=== PATIENT | male | born 1950 | race Caucasian/White ===

== ENCOUNTER 2019-01-18 00:16 | Emergency (ER) | payer MEDICARE, BC ==
[~2019-01-18] VITALS: Ht 172.7 cm; Wt 88.0 kg
[2019-01-18 01:00] LABS: BASOPHILS # (AUTO) 0.1 X10'3 (0-0.2); BASOPHILS % (AUTO) 1.1 % (0-1); EOSINOPHILS # (AUTO) 0.3 X10'3 (0-0.9); EOSINOPHILS % (AUTO) 2.8 % (0-6); HEMATOCRIT 50.9 % (42.0-52.0); HEMOGLOBIN 17.3 g/dl (14.0-17.9); LYMPHOCYTES # (AUTO) 1.6 X10'3 (1.1-4.8); LYMPHOCYTES % (AUTO) 14.3 % (21-51); MEAN CORPUSCULAR HEMOGLOBIN 28.8 PG (27.0-31.0); MEAN CORPUSCULAR VOLUME 84.8 FL (78-98); MEAN PLATELET VOLUME 7.8 FL (7.4-10.4); MONOCYTES # (AUTO) 0.9 X10'3 (0-0.9); MONOCYTES % (AUTO) 8.2 % (2-12); NEUTROPHILS # (AUTO) 8.2 X10'3 (1.8-7.7); NEUTROPHILS % (AUTO) 73.6 % (42-75); PLATELET COUNT 320 X10'3 (140-440); RED BLOOD COUNT 6.01 X10'6 (4.70-6.10); RED CELL DISTRIBUTION WIDTH 13.7 % (11.5-14.5); WHITE BLOOD COUNT 11.1 X10'3 (4.5-11.0)
[2019-01-18 01:10] LABS: ALANINE AMINOTRANSFERASE 29 U/L (12-78); ALBUMIN 3.6 G/DL (3.4-5.0); ALBUMIN/GLOBULIN RATIO 0.8 (1.1-1.5); ALKALINE PHOSPHATASE 52 IU/L (46-116); ANION GAP 10 (8-16); ASPARTATE AMINO TRANSFERASE 20 U/L (10-37); BILIRUBIN,TOTAL 0.5 MG/DL (0.1-1.0); BLOOD UREA NITROGEN 30 MG/DL (7-18); BUN/CREATININE RATIO 14.8 (5.4-32.0); CALCIUM 9.3 MG/DL (8.5-10.1); CHLORIDE 100 MMOL/L (99-107); CREATININE 2.03 MG/DL (0.60-1.10); GLUCOSE 101 MG/DL (70-104); POTASSIUM 4.9 MMOL/L (3.5-5.1); SODIUM 136 MMOL/L (135-145); TOTAL CARBON DIOXIDE 25.8 MMOL/L (24-32); TOTAL PROTEIN 8.1 G/DL (6.4-8.2); eGFR 33 ML/MIN
[2019-01-18] MEDS ORDERED: morphine 4 MG/ML inj SYRINge IV ONE ×2 (01:50→02:50)
[2019-01-18] MEDS ORDERED: normal saline 1000ML IV soln IVB ONE (01:50)
--- NOTE | 2019-01-18 01:57 | NUR ---
pt to ct with tech
[2019-01-18 02:04] LABS: CLARITY,URINE CLEAR (Clear); COLOR,URINE YELLOW (Yellow); GLUCOSE, URINE NEGATIVE (Neg); KETONES,URINE NEGATIVE (Neg); LEUKOCYTE ESTERASE ,URINE NEGATIVE (Neg); NITRITES, URINE NEGATIVE (Neg); OCCULT BLOOD,URINE LARGE (Neg); PH,URINE 5.5 (4.8-8.0); PROTEIN,URINE NEGATIVE (Neg); UROBILINOGEN,URINE 0.2 E.U/dL (0.2-1.0)
[2019-01-18 02:05] LABS: UA COLLECTION TYPE URINAL
[2019-01-18] MEDS: tamsulosin 0.4mg capsule PO ONE ×2 (02:10→02:38)
[2019-01-18 02:11] LABS: BACTERIA,URINE NONE SEEN /HPF (Neg); MUCUS STRANDS NONE SEEN /LPF (Neg); SQUAMOUS EPITHELIAL CELL,UR NONE SEEN /LPF (FEW); WBC,URINE 0-4 /HPF (0-4)
--- NOTE | 2019-01-18 02:57 | NUR ---
pt reported he was still having pain. spoke with MD and rec'd order for additional 4mg morphine IV push. pt has been medicated.
[2019-01-18] MEDS ORDERED: ONDA8TAB6 PO (04:20)
[2019-01-18 04:47] VITALS: BP 153/113
== END 2019-01-18 04:48 | disposition home or self-care (01) ==
LOC: ER 00:17
DX: N13.2 Hydronephrosis with renal and ureteral calculous obstruction (principal); K21.9 Gastro-esophageal reflux disease without esophagitis; E03.9 Hypothyroidism, unspecified; M10.9 Gout, unspecified; Z98.890 Other specified postprocedural states; Z88.1 Allergy status to other antibiotic agents; Z79.899 Other long term (current) drug therapy
CPT/HCPCS: 36415; 74176; 80053; 81001; 85025; 85610; 96374; 96376; 99284; J2270; J7030

== ENCOUNTER 2019-02-17 23:03 | Emergency (ER) | payer MEDICARE, BC ==
[~2019-02-17] VITALS: Ht 172.7 cm; Wt 86.4 kg
[~2019-02-17 23:03] MED LIST: ONDA8TAB6 PO
[2019-02-17 23:30] LABS: BASOPHILS # (AUTO) 0.1 X10'3 (0-0.2); BASOPHILS % (AUTO) 1.1 % (0-1); EOSINOPHILS # (AUTO) 0.1 X10'3 (0-0.9); EOSINOPHILS % (AUTO) 0.5 % (0-6); HEMATOCRIT 51.1 % (42.0-52.0); HEMOGLOBIN 17.4 g/dl (14.0-17.9); LYMPHOCYTES # (AUTO) 1.6 X10'3 (1.1-4.8); LYMPHOCYTES % (AUTO) 11.6 % (21-51); MEAN CORPUSCULAR HEMOGLOBIN 29.1 PG (27.0-31.0); MEAN CORPUSCULAR HGB CONC 34.1 g/dL (33.0-36.5); MEAN CORPUSCULAR VOLUME 85.1 FL (78-98); MEAN PLATELET VOLUME 7.6 FL (7.4-10.4); MONOCYTES # (AUTO) 0.6 X10'3 (0-0.9); MONOCYTES % (AUTO) 4.5 % (2-12); NEUTROPHILS # (AUTO) 11.2 X10'3 (1.8-7.7); NEUTROPHILS % (AUTO) 82.3 % (42-75); PLATELET COUNT 324 X10'3 (140-440); RED BLOOD COUNT 6.01 X10'6 (4.70-6.10); RED CELL DISTRIBUTION WIDTH 14.2 % (11.5-14.5); WHITE BLOOD COUNT 13.7 X10'3 (4.5-11.0)
[2019-02-17] MEDS ORDERED: ondansetron/PF 4mg/2ml inj IV ONE (23:30)
[2019-02-17] MEDS ORDERED: ondansetron 4mg rapidly disintigrating tab PO ONE (23:35)
[2019-02-17 23:43] LABS: ALANINE AMINOTRANSFERASE 30 U/L (12-78); ALBUMIN 4.1 G/DL (3.4-5.0); ALBUMIN/GLOBULIN RATIO 0.9 (1.1-1.5); ALKALINE PHOSPHATASE 62 IU/L (46-116); ANION GAP 8 (8-16); ASPARTATE AMINO TRANSFERASE 22 U/L (10-37); BILIRUBIN,TOTAL 0.6 MG/DL (0.1-1.0); BLOOD UREA NITROGEN 20 MG/DL (7-18); BUN/CREATININE RATIO 14.4 (5.4-32.0); CALCIUM 9.5 MG/DL (8.5-10.1); CHLORIDE 102 MMOL/L (99-107); CREATININE 1.39 MG/DL (0.60-1.10); GLUCOSE 119 MG/DL (70-104); LIPASE 141 U/L (73-393); POTASSIUM 4.5 MMOL/L (3.5-5.1); SODIUM 138 MMOL/L (135-145); TOTAL CARBON DIOXIDE 28.4 MMOL/L (24-32); TOTAL PROTEIN 8.8 G/DL (6.4-8.2); eGFR 51 ML/MIN
[2019-02-17 23:44] LABS: CLARITY,URINE CLEAR (Clear); COLOR,URINE YELLOW (Yellow); GLUCOSE, URINE NEGATIVE (Neg); KETONES,URINE NEGATIVE (Neg); LEUKOCYTE ESTERASE ,URINE NEGATIVE (Neg); NITRITES, URINE NEGATIVE (Neg); OCCULT BLOOD,URINE NEGATIVE (Neg); PH,URINE 6.5 (4.8-8.0); PROTEIN,URINE NEGATIVE (Neg); UROBILINOGEN,URINE 0.2 E.U/dL (0.2-1.0)
[2019-02-17 23:49] LABS: UA COLLECTION TYPE URINAL
--- NOTE | 2019-02-18 00:34 | NUR ---
MD BECKER MADE AWARE OF PT VITAL SIGNS. NO NEW ORDERS.
[2019-02-18] MEDS ORDERED: ketorolac trometh inj. 60 MG/2 ML VIAL IM ONE (01:10)
[2019-02-18] MEDS ORDERED: cephalexin 250mg capsule PO ONE (01:10)
[2019-02-18 01:24] VITALS: BP 180/94
[2019-02-18] MEDS ORDERED: ALLO100T PO (11:36)
[2019-02-18] MEDS ORDERED: LEVO100T9 PO (11:36)
[2019-02-18] MEDS ORDERED: OMEP20TA23 PO (11:54)
[2019-02-18] MEDS ORDERED: OMEP40CA13 PO (12:30)
== END 2019-02-18 01:26 | disposition home or self-care (01) ==
LOC: ER 23:03
DX: K81.0 Acute cholecystitis (principal); K21.9 Gastro-esophageal reflux disease without esophagitis; M10.9 Gout, unspecified; E05.90 Thyrotoxicosis, unspecified without thyrotoxic crisis or storm; Z87.442 Personal history of urinary calculi; Z98.890 Other specified postprocedural states; Z88.1 Allergy status to other antibiotic agents; Z79.899 Other long term (current) drug therapy
CPT/HCPCS: 36415; 74176; 80053; 81003; 83690; 85025; 96372; 99284; J1885

== ENCOUNTER 2019-02-18 08:24 | Inpatient (IN) | payer MEDICARE, BC ==
[~2019-02-18] VITALS: Ht 172.7 cm; Wt 86.4 kg
[2019-02-18] VITALS (16 sets, daily range): BP systolic 109–150; BP diastolic 59–85
[2019-02-18 09:35] LABS: BASOPHILS % (AUTO) 0.5 % (0-1); EOSINOPHILS # (AUTO) 0.1 X10'3 (0-0.9); HEMOGLOBIN 16.7 g/dl (14.0-17.9); LYMPHOCYTES # (AUTO) 1.4 X10'3 (1.1-4.8); LYMPHOCYTES % (AUTO) 15.9 % (21-51); MEAN CORPUSCULAR HEMOGLOBIN 29.1 PG (27.0-31.0); MEAN CORPUSCULAR HGB CONC 34.1 g/dL (33.0-36.5); MEAN CORPUSCULAR VOLUME 85.1 FL (78-98); MEAN PLATELET VOLUME 7.5 FL (7.4-10.4); MONOCYTES # (AUTO) 0.8 X10'3 (0-0.9); MONOCYTES % (AUTO) 9.1 % (2-12); NEUTROPHILS # (AUTO) 6.5 X10'3 (1.8-7.7); NEUTROPHILS % (AUTO) 73.5 % (42-75); PLATELET COUNT 289 X10'3 (140-440); RED BLOOD COUNT 5.76 X10'6 (4.70-6.10); RED CELL DISTRIBUTION WIDTH 13.8 % (11.5-14.5); WHITE BLOOD COUNT 8.8 X10'3 (4.5-11.0)
[2019-02-18 09:45] LABS: ALANINE AMINOTRANSFERASE 28 U/L (12-78); ALBUMIN 3.7 G/DL (3.4-5.0); ALBUMIN/GLOBULIN RATIO 0.9 (1.1-1.5); ALKALINE PHOSPHATASE 59 IU/L (46-116); ANION GAP 6 (8-16); ASPARTATE AMINO TRANSFERASE 20 U/L (10-37); BILIRUBIN,TOTAL 0.7 MG/DL (0.1-1.0); BLOOD UREA NITROGEN 18 MG/DL (7-18); BUN/CREATININE RATIO 12.6 (5.4-32.0); CHLORIDE 102 MMOL/L (99-107); CREATININE 1.43 MG/DL (0.60-1.10); GLUCOSE 106 MG/DL (70-104); LIPASE 145 U/L (73-393); POTASSIUM 4.4 MMOL/L (3.5-5.1); SODIUM 139 MMOL/L (135-145); TOTAL CARBON DIOXIDE 30.6 MMOL/L (24-32); eGFR 49 ML/MIN
[2019-02-18 09:51] LABS: CALCIUM 9.8 MG/DL (8.5-10.1)
[2019-02-18] MEDS ORDERED: HYDROcodone/acetaminophen 5mg/325mg tablet PO PRN (11:05)
[2019-02-18] MEDS ORDERED: acetaminophen 325mg tablet PO PRN ×2 (11:05)
[2019-02-18] MEDS ORDERED: magnesium Cl slow-release 64mg tablet PO PRN (11:05)
[2019-02-18] MEDS ORDERED: magnesium hydroxide 30ml (MOM) UD suspension PO PRN (11:05)
[2019-02-18] MEDS ORDERED: mag hydrox/Alum hydrox/simeth 30ml oral suspension PO PRN (11:05)
[2019-02-18] MEDS ORDERED: HYDROcodone/acetaminophen 10/325mg tab PO PRN ×2 (11:05→15:55)
[2019-02-18] MEDS ORDERED: piperacillin/tazo 3.375gm/50ml 50 ML IV ONE (11:05)
[2019-02-18] MEDS ORDERED: potassium CL 10mEq/100ml bag 100 ML IV PRN ×2 (11:05)
[2019-02-18] MEDS ORDERED: potassium Cl 20 mEq SR tablet PO PRN ×2 (11:05)
[2019-02-18] MEDS ORDERED: magnesium 4gm in 100ml NS 100 ML IV PRN (11:05)
[2019-02-18] MEDS ORDERED: ondansetron/PF 4mg/2ml inj IV PRN ×3 (11:05→15:55)
[2019-02-18] MEDS ORDERED: magnesium 2GM in 50ml NS 50 ML IV PRN (11:05)
[2019-02-18] MEDS ORDERED: morphine 2 MG/ML inj. syringe IV PRN ×2 (11:05)
[2019-02-18] MEDS: normal saline 1000ml 1,000 ML IV SCH ×2 (11:30→17:47)
[2019-02-18] MEDS ORDERED: ALLO100T PO (11:36)
[2019-02-18] MEDS ORDERED: LEVO100T9 PO (11:36)
[2019-02-18] MEDS ORDERED: OMEP20TA23 PO (11:54)
--- NOTE | 2019-02-18 12:02 | NUR ---
ATTEMPTED TO CALL REPORT. NO RN ASSIGNED. WILL CALL BACK.
[2019-02-18] MEDS ORDERED: OMEP40CA13 PO (12:30)
--- NOTE | 2019-02-18 12:50 | NUR ---
Patient in room [facility]. I have received report from Jonatan BENEDICT and had the opportunity to ask questions and assume patient care.
[2019-02-18] MEDS ORDERED: BUPIVAcaine/PF 2.5 mg/ml (0.25%) 30ml vial ONE (14:15)
[2019-02-18] MEDS ORDERED: ceFAZolin 1000mg inj ONE (14:15)
[2019-02-18] MEDS ORDERED: sevoflurane 250ml liquid IH ONE (14:39)
[2019-02-18] MEDS ORDERED: ceFOXitin 2 GM ADDVANTGE BAG 50 ML IV ONE (14:42)
[2019-02-18] MEDS ORDERED: midazolam 2 mg/2 ml injection ONE (14:43)
[2019-02-18] MEDS ORDERED: fentaNYL/PF 50MCG/1 ML 2ML syringe ONE (14:43)
[2019-02-18] MEDS ORDERED: propofol inj 20 ML IV ONE (14:45)
[2019-02-18] MEDS ORDERED: rocuronium 10mg/ml inj IV ONE (15:05)
[2019-02-18] MEDS ORDERED: ePHEDrine 50MG/ML INJ. ONE (15:11)
[2019-02-18] MEDS ORDERED: ringers solution, lacted 1,000 ML IV SCH (15:17)
[2019-02-18] MEDS ORDERED: proCHLORperazine 10 MG/2 ml inj IV PRN (15:20)
[2019-02-18] MEDS ORDERED: morphine 4 MG/ML inj SYRINge IV PRN ×2 (15:20)
[2019-02-18] MEDS ORDERED: meperidine/PF 25mg/ml syringe IV PRN ×3 (15:20)
[2019-02-18] MEDS ORDERED: dexamethasone sod phosphate 4mg/ml inj. ONE (15:23)
[2019-02-18] MEDS ORDERED: ondansetron/PF 4mg/2ml inj ONE (15:24)
[2019-02-18] MEDS ORDERED: glycopyrrolate 0.2mg/ml inj ONE (15:48)
[2019-02-18] MEDS ORDERED: neostigmine methylsulfate 1 MG/ML 10ml vial ONE (15:48)
--- NOTE | 2019-02-18 16:15 | NUR ---
ADMITTED TO PACU FROM OR ACCOMPANIED BY ANESTHESIA. INTIAL PHYSICAL ASSESSMENT DONE AND RECORDED. AWAKE AND RESPONSE ON ARRIVE YO PACU, REPORT RECEIVED FROM ANESTHESIA.
--- NOTE | 2019-02-18 17:15 | NUR ---
PACU DISCHARGE CRITERIA MET, REPORT GIVEN TO FLOOR. DENIES PAIN OR DISCOMFORT, TRANSFERRED TO ROOM IN STABLE GOOD CONDITION.
--- NOTE | 2019-02-18 18:07 | NUR ---
Patient in room [facility]. I have received report from MARICHUY Resendiz and had the opportunity to ask questions and assume patient care.
--- NOTE | 2019-02-18 18:47 | NUR ---
[id number] Received patient report from Kylee BENEDICT. patient returned to unit in stable condition following lap kristen. Given Edison and Zofran for pain and nausea. Resting comfortably at time of report. Report given to rFankie BENEDICT
[2019-02-18] MEDS: lactobacillus rhamnosus 10,000 MMU CELLS/CAPSULE PO SCH (19:05)
[2019-02-18] MEDS: piperacillin/tazo 3.375gm/50ml 50 ML IV SCH (19:57)
[2019-02-19] VITALS: BP 113/67
[2019-02-19] MEDS: piperacillin/tazo 3.375gm/50ml 50 ML IV SCH ×3 (00:34→16:41)
--- NOTE | 2019-02-19 01:12 | NUR ---
pt complaining of unable to feel like bladder is fully emptying. bladder scan revealed 777mL. straight cath per protocol, 750mL removed, repeat bladder scan revealed 0mL. will continue to monitor and repeat bladder scan in 4 hours
--- NOTE | 2019-02-19 05:20 | NUR ---
bladder scan shown 420mL. pt encouraged to ambulate and attempt to void. denies discomfort
[2019-02-19 05:23] LABS: BASOPHILS % (AUTO) 0.1 % (0-1); EOSINOPHILS % (AUTO) 0 % (0-6); HEMATOCRIT 42.5 % (42.0-52.0); HEMOGLOBIN 14.5 g/dl (14.0-17.9); LYMPHOCYTES # (AUTO) 1.1 X10'3 (1.1-4.8); LYMPHOCYTES % (AUTO) 9.1 % (21-51); MEAN CORPUSCULAR VOLUME 85.2 FL (78-98); MEAN PLATELET VOLUME 7.9 FL (7.4-10.4); MONOCYTES # (AUTO) 0.5 X10'3 (0-0.9); MONOCYTES % (AUTO) 4.1 % (2-12); NEUTROPHILS % (AUTO) 86.7 % (42-75); PLATELET COUNT 284 X10'3 (140-440); RED BLOOD COUNT 4.99 X10'6 (4.70-6.10); RED CELL DISTRIBUTION WIDTH 13.8 % (11.5-14.5); WHITE BLOOD COUNT 11.5 X10'3 (4.5-11.0)
[2019-02-19 05:56] LABS: ALBUMIN 3.1 G/DL (3.4-5.0); ANION GAP 5 (8-16); BLOOD UREA NITROGEN 16 MG/DL (7-18); CALCIUM 8.2 MG/DL (8.5-10.1); CHLORIDE 105 MMOL/L (99-107); CREATININE 1.46 MG/DL (0.60-1.10); GLUCOSE 121 MG/DL (70-104); MAGNESIUM 1.8 MG/DL (1.5-2.4); POTASSIUM 4.6 MMOL/L (3.5-5.1); SODIUM 138 MMOL/L (135-145); TOTAL CARBON DIOXIDE 27.8 MMOL/L (24-32); eGFR 48 ML/MIN
--- NOTE | 2019-02-19 06:30 | NUR ---
Patient in room [facility]. I have received report from Frankie BENEDICT and had the opportunity to ask questions and assume patient care.
--- NOTE | 2019-02-19 06:35 | NUR ---
Problems reprioritized. Patient report given, questions answered & plan of care reviewed with MARICHUY De Los Santos.
[2019-02-19] MEDS: normal saline 1000ml 1,000 ML IV SCH ×3 (07:05→20:30)
[2019-02-19 07:16] VITALS: BP 128/63
[2019-02-19] MEDS: lactobacillus rhamnosus 10,000 MMU CELLS/CAPSULE PO SCH ×2 (07:45→20:29)
[2019-02-19] MEDS: allopurinol 100mg tablet PO SCH (07:45)
[2019-02-19] MEDS: pantoprazole 40mg Tablet.DR PO SCH (07:45)
[2019-02-19] MEDS: levoTHYROXINE 100mcg tablet PO SCH (07:45)
[2019-02-19] MEDS: enoxaparin 40mg/0.4ml syringe SQ SCH (07:48)
[2019-02-19] MEDS: K and/or MAG REPLACEMENT MC SCH (08:00)
[2019-02-19 11:00] VITALS: BP 122/71
--- NOTE | 2019-02-19 18:05 | NUR ---
Patient in room [facility]. I have received report from KING BENEDICT and had the opportunity to ask questions and assume patient care. Addendum: 02/19/19 at 1908 by Mara Zimmerman RN Amended: Links added.
--- NOTE | 2019-02-19 18:30 | NUR ---
Problems reprioritized. Patient report given, questions answered & plan of care reviewed with Mara BENEDICT/Alice BENEDICT.
--- NOTE | 2019-02-19 19:40 | NUR ---
abx still infusing pt a/o without complaints. lap sites x3 dry and intact. right side yasmine drain dry dry and bulb compressed.
[2019-02-19 19:43] VITALS: BP 142/84
--- NOTE | 2019-02-19 21:35 | NUR ---
pt a/o without complaints abx completed infusion. site flushed.
--- NOTE | 2019-02-19 23:00 | NUR ---
pt resting eyes closed no s&s of distress at this time.
[2019-02-20] MEDS: piperacillin/tazo 3.375gm/50ml 50 ML IV SCH ×2 (00:30→07:54)
--- NOTE | 2019-02-20 00:41 | NUR ---
pt awoke up sweating pt given new gown and abx hung and infusing. urinal emptied of 800cc clear yellow urine and yasmine drain of 42cc of sanguinous going to serosanguineous fld. no clots seen.
[2019-02-20 00:58] VITALS: BP 141/82
--- NOTE | 2019-02-20 02:24 | NUR ---
pt resting without changes.
--- NOTE | 2019-02-20 04:25 | NUR ---
pt awoke to use restroom and zosyn dose completed and flushed.
[2019-02-20] MEDS: normal saline 1000ml 1,000 ML IV SCH (04:29)
[2019-02-20 05:05] LABS: BASOPHILS # (AUTO) 0.1 X10'3 (0-0.2); EOSINOPHILS # (AUTO) 0.1 X10'3 (0-0.9); EOSINOPHILS % (AUTO) 1.3 % (0-6); HEMATOCRIT 44.7 % (42.0-52.0); LYMPHOCYTES # (AUTO) 1.8 X10'3 (1.1-4.8); LYMPHOCYTES % (AUTO) 20.8 % (21-51); MEAN CORPUSCULAR HGB CONC 33.6 g/dL (33.0-36.5); MEAN CORPUSCULAR VOLUME 86.2 FL (78-98); MEAN PLATELET VOLUME 7.7 FL (7.4-10.4); MONOCYTES # (AUTO) 0.7 X10'3 (0-0.9); MONOCYTES % (AUTO) 8.5 % (2-12); NEUTROPHILS # (AUTO) 5.8 X10'3 (1.8-7.7); NEUTROPHILS % (AUTO) 68.4 % (42-75); PLATELET COUNT 265 X10'3 (140-440); RED BLOOD COUNT 5.18 X10'6 (4.70-6.10); RED CELL DISTRIBUTION WIDTH 13.9 % (11.5-14.5); WHITE BLOOD COUNT 8.5 X10'3 (4.5-11.0)
[2019-02-20 05:13] LABS: ALBUMIN 3.2 G/DL (3.4-5.0); ANION GAP 6 (8-16); BLOOD UREA NITROGEN 14 MG/DL (7-18); BUN/CREATININE RATIO 10.1 (5.4-32.0); CALCIUM 8.9 MG/DL (8.5-10.1); CHLORIDE 105 MMOL/L (99-107); CREATININE 1.39 MG/DL (0.60-1.10); GLUCOSE 94 MG/DL (70-104); MAGNESIUM 2.1 MG/DL (1.5-2.4); POTASSIUM 4.2 MMOL/L (3.5-5.1); SODIUM 141 MMOL/L (135-145); TOTAL CARBON DIOXIDE 29.8 MMOL/L (24-32); eGFR 51 ML/MIN
--- NOTE | 2019-02-20 06:30 | NUR ---
Patient in room [facility]. I have received report from Mara BENEDICT and had the opportunity to ask questions and assume patient care.
--- NOTE | 2019-02-20 06:44 | NUR ---
Problems reprioritized. Patient report given, questions answered & plan of care reviewed with Filiberto Melendez. Addendum: 02/20/19 at 0645 by Mara Zimmerman RN Amended: Links added.
[2019-02-20 07:24] VITALS: BP 152/85
[2019-02-20] MEDS: levoTHYROXINE 100mcg tablet PO SCH (07:46)
[2019-02-20] MEDS: pantoprazole 40mg Tablet.DR PO SCH (07:46)
[2019-02-20] MEDS: lactobacillus rhamnosus 10,000 MMU CELLS/CAPSULE PO SCH (07:46)
[2019-02-20] MEDS: allopurinol 100mg tablet PO SCH (07:46)
[2019-02-20] MEDS: enoxaparin 40mg/0.4ml syringe SQ SCH (07:47)
[2019-02-20] MEDS: K and/or MAG REPLACEMENT MC SCH (08:00)
--- NOTE | 2019-02-20 10:59 | NUR ---
Yoel SANIA and IV, patient tolerated well.
--- NOTE | 2019-02-20 13:00 | NUR ---
Patient discharged by resource nurseSAMI taken out at this time. patient discharge teaching and follow up was discussed. patient discharged into his own care. Patient walked out of the hospital and drove home. Patient had not had any pain management in the the last 24 hours. Patient drove himself home at this time.
== END 2019-02-20 12:10 | disposition home or self-care (01) | DRG 417 ==
LOC: ER 08:24 → SUR 3N 12:22
PROVIDERS: ADMIT Hospitalist; ATTEND Family Medicine
PROC: 0FT44ZZ Resection of Gallbladder, Percutaneous Endoscopic Approach (ICD-10-PCS; principal; 2019-02-18 14:39)
DX: K80.00 Calculus of gallbladder with acute cholecystitis without obstruction (principal); N17.0 Acute kidney failure with tubular necrosis; E03.9 Hypothyroidism, unspecified; K21.9 Gastro-esophageal reflux disease without esophagitis; D72.829 Elevated white blood cell count, unspecified; M1A.9XX0 Chronic gout, unspecified, without tophus (tophi); N18.3 Chronic kidney disease, stage 3 (moderate); E86.0 Dehydration; N28.1 Cyst of kidney, acquired; Z87.442 Personal history of urinary calculi; Z88.1 Allergy status to other antibiotic agents; Z79.899 Other long term (current) drug therapy
CPT/HCPCS: 36415; 74176; 76700; 80048; 80053; 81003; 82948; 83690; 83735; 85025; 88304; 96365; 96372; 99284; 99285; A4215; A4618; A6402; A7000; G0378; J0690; J0694; J1100; J1650; J1885; J2250; J2405; J2543; J2704; J2710; J3010; J3490; J7030; J7120

== ENCOUNTER 2024-06-10 17:02 | Emergency (ER) | payer MEDICARE, BC ==
[~2024-06-10] VITALS: Ht 172.7 cm; Wt 90.9 kg
[~2024-06-10 17:02] MED LIST changes: +ALLO100T PO; +LEVO100T9 PO; +OMEP40CA21 PO; -ONDA8TAB6 PO
[2024-06-10 17:22] VITALS: TEMP 96.8
[2024-06-10 18:07] LABS: BASOPHILS # (AUTO) 0.1 X10'3 (0-0.2); BASOPHILS % (AUTO) 1.2 % (0-1); EOSINOPHILS # (AUTO) 0.2 X10'3 (0-0.9); EOSINOPHILS % (AUTO) 2.7 % (0-6); HEMATOCRIT 47.8 % (42.0-52.0); HEMOGLOBIN 16.6 g/dl (14.0-17.9); LYMPHOCYTES # (AUTO) 2.3 X10'3 (1.1-4.8); LYMPHOCYTES % (AUTO) 27.2 % (21-51); MEAN CORPUSCULAR HEMOGLOBIN 31.2 PG (27.0-31.0); MEAN CORPUSCULAR HGB CONC 34.8 g/dL (33.0-36.5); MEAN CORPUSCULAR VOLUME 89.8 FL (78-98); MEAN PLATELET VOLUME 7.7 FL (7.4-10.4); MONOCYTES # (AUTO) 0.7 X10'3 (0-0.9); MONOCYTES % (AUTO) 8.3 % (2-12); NEUTROPHILS # (AUTO) 5.1 X10'3 (1.8-7.7); NEUTROPHILS % (AUTO) 60.6 % (42-75); PLATELET COUNT 251 X10'3 (140-440); RED BLOOD COUNT 5.32 X10'6 (4.70-6.10); RED CELL DISTRIBUTION WIDTH 13.5 % (11.5-14.5); WHITE BLOOD COUNT 8.4 X10'3 (4.5-11.0)
[2024-06-10 18:12] LABS: ANION GAP 5 (8-16); BLOOD UREA NITROGEN 20 MG/DL (7-18); BUN/CREATININE RATIO 16.3 (10.0-20.0); CALCIUM 9.4 MG/DL (8.5-10.1); CHLORIDE 106 MMOL/L (99-107); CREATININE 1.23 MG/DL (0.60-1.10); GLUCOSE 102 MG/DL (70-104); POTASSIUM 4.4 MMOL/L (3.5-5.1); SODIUM 141 MMOL/L (135-145); TOTAL CARBON DIOXIDE 29.7 MMOL/L (24-32); eCRCL 51 ML/MIN; eGFR 58 ML/MIN
[2024-06-10 18:15] LABS: APTT 25 SECONDS (22-32); INR 1.1 INR
[2024-06-10 19:06] VITALS: PULSE 68
[2024-06-10 19:15] VITALS: BP 148/79; RESP 18; O2SAT 97
== END 2024-06-10 19:17 | disposition home or self-care (01) ==
LOC: ER 17:02
DX: H53.8 Other visual disturbances (principal); K21.9 Gastro-esophageal reflux disease without esophagitis; E05.90 Thyrotoxicosis, unspecified without thyrotoxic crisis or storm; Z90.49 Acquired absence of other specified parts of digestive tract; Z88.1 Allergy status to other antibiotic agents; Z87.442 Personal history of urinary calculi
CPT/HCPCS: 36415; 70450; 71045; 80048; 82948; 85025; 85610; 85730; 93005; 99285

== ENCOUNTER 2025-05-15 07:36 | Day surgery (SDC) | payer MEDICARE, BC ==
--- NOTE | 2025-05-08 11:39 | ELECTROCARDIOGRAPH REPORT ---
[facility] Test Date: 2025-05-08 Test Time: 11:36:30 Pat Name: FRANKIE DAS Department: [facility]-PRE-OP Patient ID: [facility]-[id number] Room: Gender: M Tar Chaser: YUSEF : 1950 Requested By: SHAHIDA DAMON Order Number: [id number] Reading MD: Dr. Afshin Jean Measurements Intervals [place] Rate: 66 P: 52 GA: 180 QRS: 11 QRSD: 106 T: 47 QT: 415 QTc: 435 Interpretive Statements Sinus rhythm Borderline low voltage, extremity leads Electronically Signed On 05-08-2025 12:43:[address] Afshin Jean Please click the below link to view image of tracing.
[2025-05-08 11:42] LABS: MEAN PLATELET VOLUME 7.5 FL (7.4-10.4); PRE OP HEMATOCRIT 46.1 % (42.0-52.0); PRE OP HEMOGLOBIN 15.6 g/dL (14.0-17.9); PRE OP PLATELET COUNT 245 X10'3 (140-440); PRE OP WHITE BLOOD COUNT 7.3 10'3 (4.8-10.8); RED CELL DISTRIBUTION WIDTH 13.8 % (11.5-14.5)
[2025-05-08 11:57] LABS: CREATININE 0.89 MG/DL (0.60-1.10); PRE OP ALT 27 U/L (30-65); PRE OP ANION GAP 6 (8-16); PRE OP AST 30 U/L (10-37); PRE OP BILIRUB, TOTAL 0.8 MG/DL (0.0-1.0); PRE OP GLUCOSE 93 MG/DL (70-104); PRE OP POTASSIUM 4.9 MMOL/L (3.4-5.1); PRE OP SODIUM 139 MMOL/L (135-145); TOTAL CARBON DIOXIDE 29.3 MMOL/L (24-32); eGFR 83 ML/MIN
[2025-05-15] VITALS (8 sets, daily range): BP systolic 136–178; BP diastolic 74–90; PULSE 53–76; RESP 12–17; TEMP 98.1–98.6; O2SAT 97–99
[~2025-05-15] VITALS: Ht 172.7 cm; Wt 90.0 kg
[~2025-05-15 07:36] MED LIST changes: +ASPI-1071 PO; +ATOR20TA66 PO; +BIOTIN; +BUPIVAcaine/PF 2.5mg/ml (0.25%) 10ml vial ONE; +HYALURONIC ACID; +MULT-1085 PO; +ZINC220C12 PO; +ceFAZolin 2gm/dext,iso 50mL 50 ML IV ONE; +ringers solution, lacted 1,000 ML IV SCH
[2025-05-15] MEDS ORDERED: propofol inj 20 ML IV ONE (08:25)
[2025-05-15] MEDS: LIDOcaine 2% (20mg/ml) 5ml vial IV ONE (08:40)
[2025-05-15] MEDS: BUPIVAcaine/PF 2.5mg/ml (0.25%) 10ml vial IJ ONE (08:40)
--- NOTE | 2025-05-15 16:53 | OPERATIVE REPORT ---
Operative Report Providers to ~ Date of Procedure: May 15, 2025 Pre-Operative Diagnosis: right carpal tunnel syndrome Post-Operative Diagnosis SAME as PRE-Op Procedure Performed right endoscopic carpal tunnel release Surgeon: Cat Beckford MD Pressroom Worker none Anesthesiologist: Yonas Mcfarland Type of Anesthesia: Other Findings: Estimated Blood Loss: none Specimen Removed: none Description of Procedure: INDICATIONS: This patient is a 75 year old with rightcarpal tunnel syndrome refractory to conservative treatment. Surgery is indicated for relief of symptoms. PROCEDURE: After the block was given the arm was prepped and draped in the usual manner. A transverse incision was made at the proximal wrist crease, ulnar to the palmaris longus. Blunt dissection was performed through deeper tissues until the forearm fascia was encountered. A distally-based U-shaped flap was raised in the forearm fascia. The carpal tunnel was entered with the synovial dissector used to clear off the underside of the transverse carpal ligament. The scope was then placed in the wrist, and the underside of the ligament was clearly visualized. Under direct vision through the scope, the cutting blade was raised, and the ligament was divided from distal to proximal. The ligament edges retracted, denoting complete release of the ligament. The scope was removed and the forearm fascia proximal to the incision was released using blunt Metzenbaum scissors. The incision was irrigated and the small bleeders were cauterized, and then closed with 5-O nylon sutures and sterile strips. The tourniquet was released and the hand perfused well. Marcaine was injected and a sterile dressing was applied. The patient was then taken to the recovery room in stable condition. The patient tolerated the procedure well. SHAHIDA BECKFORD Jr., MD May 15, 2025 16:53
== END 2025-05-15 09:36 | disposition home or self-care (01) ==
LOC: PAS 07:36
PROVIDERS: ATTEND Orthopaedic Surgery Hand Surgery
DX: G56.01 Carpal tunnel syndrome, right upper limb (principal); I10 Essential (primary) hypertension; M10.9 Gout, unspecified; K21.9 Gastro-esophageal reflux disease without esophagitis; E78.5 Hyperlipidemia, unspecified; I25.2 Old myocardial infarction; Z90.49 Acquired absence of other specified parts of digestive tract; Z79.890 Hormone replacement therapy; Z88.1 Allergy status to other antibiotic agents; Z79.899 Other long term (current) drug therapy; Z98.890 Other specified postprocedural states
CPT/HCPCS: 29848; 36415; 80053; 85025; 93005; A4215; A6449; A7000; J2003; J2704; J3490; J7030; J7120; Z7506; Z7512; Z7610